=== PATIENT | male | born 1955 | race Asian ===

== ENCOUNTER 2019-01-19 14:48 | Emergency (ER) | payer OTHER, BC ==
[2019-01-19] MEDS ORDERED: ACETAMINOPHEN 1000 MG/100 ML VIAL (NON FORMULARY) IVPB ONE (15:08)
[2019-01-19] MEDS ORDERED: SODIUM CHLORIDE 1,000 ML IV STA (15:08)
[2019-01-19 15:20] VITALS: BP 135/87; PULSE 82; TEMP 98.3; BMI 21.6
[2019-01-19] MEDS ORDERED: ACETAMINOPHEN INJECTION 100 ML IVPB ONE (15:28)
[2019-01-19] MEDS ORDERED: FAMOTIDINE 20 MG/50 ML IVPB 20 MG/50 ML MG IVPB ONE ×2 (15:41→15:55)
--- NOTE | 2019-01-19 15:41 | PDOC ---
Documentation entered by Siobhan Mendez SCRIBE, acting as scribe for Shavon Hansen MD. Shavon Hansen MD: This documentation has been prepared by the [email or web address], Siobhan Mendez SCRIBE, under my direction and personally reviewed by me in its entirety. I confirm that the documentation accurately reflects all work, treatment, procedures, and medical decision making performed by me. History of Present Illness - General Chief Complaint: Pain Stated Complaint: ABD PAIN TITO Time Seen by Provider: 01/19/19 14:49 History Source: Patient, Spouse Exam Limitations: No Limitations - History of Present Illness Initial Comments: 01/19/19 15:35 The patient is a 63-year-old male with a past medical history significant for DM , BPH, HLD, hx of Cholecystitis (was admitted on 04/2018, left AMA for a second opinion) presents to the emergency department with abdominal pain. The patient reports she woke with LUQ pain, similar to prior cholecystitis flare up. The patient states the pain 7/10 in severity, with associated symptoms of always wanting to defecate. Denies fever, chills, nausea, or vomiting. Denies taking any medication for the pain. Per the , the patient left AMA last admission for a second opinion secondary to the option of surgery. The states they went to [facility], where the doctor states the gallbladder wasnt big enough for removal. Allergies: NKDA Social history: None reported Surgical history: Appendectomy PCP: Dr. Geronimo Allison. Past History - Past Medical History Allergies/Adverse Reactions: Allergies Allergy/AdvReac Type Severity Reaction Status Date / Time No Known Allergies Allergy Verified 01/19/19 14:49 Home Medications: Ambulatory Orders Rosuvastatin Calcium [Crestor] 10 mg PO DAILY 04/21/15 Sitagliptin Phos/Metformin HCl [Janumet 50-1,000 mg Tablet] 50 mg PO DAILY 04/21 Tamsulosin HCl [Flomax -] 0.4 mg PO DAILY 04/21/15 Insulin (Levemir) [Levemir Vial] 20 unit SQ DAILY 01/19/19 Ramipril 10 mg PO DAILY 01/19/19 Anemia: No Asthma: No Cancer: No Cardiac Disorders: No CVA: No COPD: No CHF: No Dementia: No Diabetes: Yes GI Disorders: No Disorders: No HTN: No Hypercholesterolemia: Yes Liver Disease: No Seizures: No Thyroid Disease: No - Surgical History Abdominal Surgery: No Appendectomy: Yes Cardiac Surgery: No Cholecystectomy: No Lung Surgery: No Neurologic Surgery: No Orthopedic Surgery: No - Immunization History Immunization Up to Date: Yes - Suicide/Smoking/Psychosocial Hx Smoking Status: No Smoking History: Never smoked Have you smoked in the past 12 months: No Number of Cigarettes Smoked Daily: 0 Cigars Per Day: 0 Hx Alcohol Use: No Drug/Substance Use Hx: No Substance Use Type: None Hx Substance Use Treatment: No Review of Systems - Review of Systems Able to Perform ROS?: Yes Comments:: 01/19/19 15:27 Constitutional - Pt denies Fever, Chills, weakness, HEENT: denies vision changes, sore throat Respiratory: Denies cough, sob, hemoptysis Cardiac: denies chest pain, palpitations, light headedness, leg swelling Abd/GI: +abdominal pain. denies nausea, vomiting, blood per rectum, melena, diarrhea : denies dysuria, frequency, discharge Musculskelatal - denies back pain, joint swelling skin - denies bruising, erythema, rash neurological: denies headache, numbness, focal weakness, tingling, ataxia, weakness hematologic: denies anemia, easy bruising, easy bleeding *Physical Exam - Vital Signs Last Vital Signs Temp Pulse Resp BP Pulse Ox 98.3 F 82 20 135/87 99 01/19/19 14:49 01/19/19 14:49 01/19/19 14:49 01/19/19 14:49 01/19/19 14:49 - Physical Exam Comments: 01/19/19 15:24 GENERAL: The patient is in no acute distress. HEAD: Normal with no signs of trauma. EYES: PERRLA, EOMI, sclera anicteric, conjunctiva clear. ENT: Ears normal, nares patent, oropharynx clear without exudates. Moist mucous membranes. NECK: Normal range of motion, supple without lymphadenopathy, JVD, or masses. LUNGS: Breath sounds equal, clear to auscultation bilaterally. No wheezes, and no crackles. HEART:Regular rate and rhythm, normal S1 and S2 without murmur, rub or gallop. ABDOMEN: +epigastric tenderness, Soft, No guarding, no rebound. No masses palpable. EXTREMITIES: Normal range of motion, no edema. No clubbing or cyanosis. No erythema, or tenderness. NEUROLOGICAL: Cranial nerves II through XII grossly intact. Normal speech. No focal neurological deficits. MUSCULOSKELETAL: Back non-tender to palpation, no CVA tenderness SKIN: Warm, Dry, normal turgor, no rashes or lesions noted. ED Treatment Course - LABORATORY CBC & Chemistry Diagram: 01/19/19 15:20 01/19/19 15:20 - RADIOLOGY Radiology Studies Ordered: Category Date Time Status ABDOMEN & PELVIS CT WITH CONTR [CT] Stat CT Scan 01/19/19 15:08 Ordered - Medications Given in the ED: ED Medications Discontinued Medications Generic Name Dose Route Start Last Admin Trade Name Freq PRN Reason Stop Dose Admin Acetaminophen 1,000 mg 01/19/19 15:08 01/19/19 15:31 Ofirmev Injection - IVPB 01/19/19 15:09 1,000 mg ONCE ONE Administration Medical Decision Making - Medical Decision Making 01/19/19 15:36 63 yo M h/o HTN, BPH, NIDDM and hyperlipidemia presenting with a complaint of abdominal pain which began this morning. No nausea or vomiting Pain is rated 7/10, located in the epigastrium and LUQ Pt states pain is similar to his presentation in April of 2018 where he was admitted for cholecystitis and signed out AMA for a 2nd opinion Pt got that 2nd opinion at [facility] told that he did not need any intervention DD: pancreatis, gastritis, cholecystitis, colitis Will do: labs, tylenol for pain, Pepcid, IVF, CT, Re Assess 01/19/19 16:48 Laboratory Tests 01/19/19 01/19/19 01/19/19 15:20 15:20 15:20 WBC 4.5 Hgb 13.3 Hct 40.5 Plt Count 194 INR 1.00 BUN 28 H Creatinine 1.3 Total Amylase [address] pending 01/19/19 18:45 CT demonstrates 1.1 com stone at the gb neck, no PCCF, no gb wall thickening U/S demosntrates currently pt pain is 4-5/10 No nausea He does not want to stay in the hospital He tells me that he feels better and 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) calls placed to dr Asher (environmental services supervisor at [facility], no one is on the [facility] Schedule today for General surgery) Calls go to voicemail, mail box is full Pt will be leaving against my medical advise I have discussed with him the risks of leaving in this manner - sepsis, ICU admission, need for percutaneous cholecystostomy, need for emergency surgery ( and all complications which result from emergency surgery), Pt understands these risks and still opts to leave He would like to leave and follow up as an outpatient He is advised to return to [facility] IMM[facility]ELY for fevers, chills, vomiting, nausea, increased pain, weakness, any other concerns or complaints He is advise to adhere to a bland diet -ABSOLUTELY NO FATTY FOODS, NO BUTTER, NO FRIED FOODS etc Note: The patient insists on leaving the emergency dept and is signing out against medical advice. The patient understands the risks and complications that may result from the refusal of medical care and admission which includes and permanent disability. The patient has the mental capacity of understanding the risks of refusing care and is capable of making an informed decision. The patient was instructed to return to the emergency department should ho change his mind regarding medical care or should his condition worsen. The patient signed the Against Medical Advice form. *DC/Admit/Observation/Transfer Diagnosis at time of Disposition: Cholelithiasis and acute cholecystitis without obstruction - Discharge Dispostion Disposition: AGAINST MEDICAL ADVICE Condition at time of disposition: Fair Decision to Admit order: No - Referrals Referrals: Geronimo Medina MD [Primary Care Provider] - Ave Leslie MD [Staff Physician] - Erwin Kent MD [Staff Physician] - Marv Galarza MD [Staff Physician] - - Patient Instructions Printed Discharge Instructions: DI for Gallstones, DI for Cholecystitis, DI for Biliary Colic, Fat-Restricted Diet Additional Instructions: Mr. Webb Thank you for coming in to the ER today Please be sure to follow up with the surgeon as we discussed This is VERY IMPORTANT You have a stone in your gallbladder which is causing problems and your gall bladder may need to be removed PLEASE PLEASE return to the emergency department immediately with ANY new, persistent or worsening symptoms. AVOID ALL FATTY FOODS including fried foods, butter, oils, etc Continue any medications as previously prescribed by your physician. You should follow up with your primary doctor/the surgeon [address] Please make sure your doctor reviews the results of your emergency evaluation, you were given copies of your labs and imaging Thank you for coming to the [facility] today for your care. It was a pleasure to see you today. Please note that your evaluation is INCOMPLETE until you follow-up with your doctor. - Post Discharge Activity Forms/Work/School Notes: Back to Work
[2019-01-19 15:51] LABS: BASO % 0.7 % (0-2.0); EOS % 0.7 % (0-4.5); HEMATOCRIT 40.5 % (35.4-49); HEMOGLOBIN 13.3 GM/dl (11.7-16.9); LYMPH % 16.9 % (8-40); MCHC 32.9 g/dl (32.0-35.9); MEAN CELL VOLUME 91.1 fl (80-96); MEAN PLT VOLUME 8.3 fl (7.5-11.1); MONO % 6.4 % (3.8-10.2); NEUT % 75.3 % (42.8-82.8); PLATELET COUNT 194 K/MM3 (134-434); RBC 4.45 M/mm3 (4.00-5.60); WHITE BLOOD COUNT 4.5 K/mm3 (4.0-10.8)
[2019-01-19 16:01] LABS: PROTHROMBIN TIME (PATIENT) 11.2 SEC (10.2-13.0)
[2019-01-19 16:06] LABS: ALBUMIN 4.5 g/dl (3.4-5.0); ALK PHOS 61 U/L (45-117); AMYLASE 127 U/L (25-115); ANION GAP 9 MMOL/L (8-16); BILIRUBIN,TOTAL 0.7 mg/dl (0.2-1); BLOOD UREA NITROGEN 28 mg/dl (7-18); CALCIUM 9.2 mg/dl (8.5-10); CHLORIDE 106 mmol/L (98-107); CO2 23 mmol/L (21-32); CREATININE 1.3 mg/dl (0.55-1.3); GLUCOSE,RANDOM 148 mg/dl (74-106); POTASSIUM 4.3 mmol/L (3.5-5.1); SGOT/AST 22 U/L (15-37); SGPT/ALT 27 U/L (13-61); SODIUM 138 mmol/L (136-145); TOT PROT 7.3 g/dl (6.4-8.2)
[2019-01-19 17:22] LABS: LIPASE 217 U/L (73-393)
[2019-01-19] MEDS ORDERED: PIPERACILLIN/TAZOB 4.5 GM 4.5 GM in DEXTROSE 5%-WATER 100 ML IVPB ONE (18:53)
[2019-01-19] MEDS ORDERED: PIPERACILLIN/TAZOBACTAM 4.5 GM VIAL IVPB ONE (19:01)
== END 2019-01-19 19:32 | disposition left against medical advice (07) ==
LOC: SUPCPDRO 14:48 → FER 14:48
PROC: 3E033NZ Introduction of Analgesics, Hypnotics, Sedatives into Peripheral Vein, Percutaneous Approach (ICD-10-PCS; principal; 2019-01-19)
PROC: 3E03329 Introduction of Other Anti-infective into Peripheral Vein, Percutaneous Approach (ICD-10-PCS; 2019-01-19)
PROC: 3E0337Z Introduction of Electrolytic and Water Balance Substance into Peripheral Vein, Percutaneous Approach (ICD-10-PCS; 2019-01-19)
PROC: 3E033GC Introduction of Other Therapeutic Substance into Peripheral Vein, Percutaneous Approach (ICD-10-PCS; 2019-01-19)
DX: K80.20 Calculus of gallbladder without cholecystitis without obstruction (principal); K81.9 Cholecystitis, unspecified; I10 Essential (primary) hypertension; N40.0 Benign prostatic hyperplasia without lower urinary tract symptoms; E11.9 Type 2 diabetes mellitus without complications; E78.5 Hyperlipidemia, unspecified
CPT/HCPCS: 36415; 74177-TC; 76705-TC; 80053; 82150; 83690; 85025; 85610; 99282-25; J0131; J7030

== ENCOUNTER 2022-11-05 09:31 | Emergency (ER) | payer OTHER, BC ==
[2022-11-05 09:35] VITALS: BP 146/63; PULSE 60; RESP 20; TEMP 97.8; BMI 22.4
[2022-11-05] MEDS ORDERED: CYCLOBENZAPRINE HCL 10 MG TABLET (FP) PO ONE (10:25)
[2022-11-05] MEDS ORDERED: IBUPROFEN 600 MG TABLET (FP) PO ONE ×2 (10:25→10:28)
[2022-11-05] MEDS ORDERED: ACETAMINOPHEN 500 MG TABLET (FP) PO ONE (10:25)
[2022-11-05] MEDS ORDERED: CYCLOBENZAPRINE HCL 10 MG TABLET (FP) ONE (10:27)
[2022-11-05] MEDS ORDERED: ACETAMINOPHEN 500 MG TABLET (FP) ONE (10:28)
== END 2022-11-05 12:02 | disposition home or self-care (01) ==
LOC: JERFT 09:31
DX: M54.2 Cervicalgia (principal); V49.40XA Driver injured in collision with unspecified motor vehicles in traffic accident, initial encounter
CPT/HCPCS: 72125-TC; 99284-25